=== PATIENT | male | born 1965 | race African-American/Black ===

== ENCOUNTER 2021-12-03 07:28 | Inpatient (IN) ==
[2021-12-03 07:52] LABS: Basophils % 0.3 %; Eosinophils # 0.2 K/mcL (0.0-0.6); Eosinophils % 2.6 %; Hematocrit 38.6 % (37.5-50.1); Hemoglobin 12.7 g/dL (12.9-16.9); Immature Granulocytes % 0.3 % (0-4); Lymphocytes % 11.3 %; Mean Corpuscular HGB Conc 32.9 g/dL (31.6-35.5); Mean Corpuscular Hemoglobin 28.3 pg (28.0-33.3); Mean Corpuscular Volume 86.2 fL (83.0-100.0); Mean Platelet Volume 9.3 fL (9.4-12.4); Monocytes # 0.6 K/mcL (0.0-1.3); Monocytes % 6.5 %; Neutrophils # 7.2 K/mcL (1.6-8.9); Platelet Count 166 K/mcL (140-400); Red Blood Count 4.48 M/mcL (4.19-5.50); Red Cell Distribution Width 14.6 % (11.5-14.5); White Blood Count 9.1 K/mcL (4.3-11.1)
[2021-12-03] MEDS ORDERED: Iopamidol - 370 500 ML MLS IVP ONE (08:09)
[2021-12-03 08:11] LABS: Calcium 8.4 mg/dL (8.6-10.3)
[2021-12-03 08:15] LABS: Troponin I 0.04 ng/mL (< 0.04)
[2021-12-03] MEDS ORDERED: *HR* Propofol 200 MG/20 ML VIAL IVP ONE (08:46)
[2021-12-03] MEDS ORDERED: *HR* FentaNYL (PF) 1,000 MCG/20 ML VIAL ONE (08:46)
[2021-12-03] MEDS ORDERED: *HR* Midazolam HCl 5 MG/5 ML VIAL IVP ONE ×2 (08:46)
[2021-12-03] MEDS ORDERED: Mannitol 25% vial 12.5 GM/50 ML VIAL IVPB ONE (08:48)
[2021-12-03] MEDS ORDERED: Tranexamic Acid 1,000 MG/10 ML VIAL IR ONE (08:48)
[2021-12-03] MEDS ORDERED: Albumin Human 25% 25 GM/100 ML IV.SOLN IVPB ONE (08:48)
[2021-12-03] MEDS ORDERED: *HR* Phenylephrine 10 MG/ML VIAL IVC ONE (08:48)
[2021-12-03] MEDS ORDERED: Lidocaine 2% Syringe 100 MG/5 ML IVP ONE (08:48)
[2021-12-03] MEDS ORDERED: *HR* Heparin 10,000 UNIT/10 ML VIAL IR ONE (08:48)
[2021-12-03] MEDS ORDERED: *HR* Magnesium Sulfate 2 GM/50 ML PIGGYBACK IVPB ONE (08:48)
[2021-12-03] MEDS ORDERED: niCARdipine 20 MG/200 ML MLS IVC ONE ×2 (08:54→14:09)
[2021-12-03] MEDS ORDERED: CeFAZolin Syr 2,000MG/20 ML 2,000 MG/20 ML SYRINGE IVPB ONE (09:06)
[2021-12-03 09:42] LABS: ABG Base Excess -1 mEq/L (-2 to 3); ABG Chloride 105 mEq/L (98-107); ABG Glucose 124 mg/dL (60-95); ABG HCO3 24 mEq/L (21-27); ABG Ionized Calcium 1.22 mmol/L (1.15-1.35); ABG Oxygen Saturation 89 % (95-98); ABG PCO2 40 mmHg (35-45); ABG PH 7.38 pH Units (7.32-7.45); ABG PO2 57 mmHg (85-104); ABG TCO2 25 mEq/L (20-26)
[2021-12-03] MEDS ORDERED: Tranexamic Acid 1,000 MG/10 ML VIAL ONE (09:57)
[2021-12-03] MEDS ORDERED: Vancomycin 1,750 MG/517.5 ML IV.SOLN IVPB ONE (10:00)
[2021-12-03 10:02] LABS: ABG Base Excess -2 mEq/L (-2 to 3); ABG Chloride 104 mEq/L (98-107); ABG Glucose 118 mg/dL (60-95); ABG HCO3 22 mEq/L (21-27); ABG Oxygen Saturation 100 % (95-98); ABG PCO2 34 mmHg (35-45); ABG PH 7.42 pH Units (7.32-7.45); ABG PO2 209 mmHg (85-104); ABG TCO2 23 mEq/L (20-26)
[2021-12-03] MEDS ORDERED: *HR* Rocuronium Bromide 50 MG/5 ML VIAL ONE ×2 (10:15→13:08)
[2021-12-03 10:36] LABS: ABG Base Excess -1 mEq/L (-2 to 3); ABG Chloride 107 mEq/L (98-107); ABG Glucose 111 mg/dL (60-95); ABG HCO3 23 mEq/L (21-27); ABG Ionized Calcium 1.18 mmol/L (1.15-1.35); ABG Oxygen Saturation 98 % (95-98); ABG PCO2 37 mmHg (35-45); ABG PH 7.41 pH Units (7.32-7.45); ABG PO2 105 mmHg (85-104); ABG TCO2 25 mEq/L (20-26)
[2021-12-03] MEDS ORDERED: *HR* FentaNYL (PF) 250 MCG/5 ML VIAL ONE (11:07)
[2021-12-03] MEDS ORDERED: ceFAZolin 3,000 MG in Water for inj. (sterile) 30 ML IVP ONE (11:19)
[2021-12-03 11:28] LABS: ABG Base Excess -2 mEq/L (-2 to 3); ABG Chloride 105 mEq/L (98-107); ABG Glucose 112 mg/dL (60-95); ABG HCO3 24 mEq/L (21-27); ABG Ionized Calcium 1.06 mmol/L (1.15-1.35); ABG Oxygen Saturation 100 % (95-98); ABG PCO2 41 mmHg (35-45); ABG PH 7.37 pH Units (7.32-7.45); ABG PO2 599 mmHg (85-104); ABG TCO2 25 mEq/L (20-26)
[2021-12-03] MEDS ORDERED: Dexmedetomidine HCl 400 MCG/100 ML MLS IVC ONE (11:46)
[2021-12-03 11:53] LABS: ABG Base Excess -3 mEq/L (-2 to 3); ABG Chloride 103 mEq/L (98-107); ABG Glucose 115 mg/dL (60-95); ABG HCO3 23 mEq/L (21-27); ABG Oxygen Saturation 100 % (95-98); ABG PCO2 45 mmHg (35-45); ABG PH 7.32 pH Units (7.32-7.45); ABG PO2 512 mmHg (85-104); ABG TCO2 24 mEq/L (20-26)
[2021-12-03] MEDS ORDERED: Buckersberg's Blood Cardioplegia PF ONE (12:00)
[2021-12-03] MEDS ORDERED: [UNRECOGNIZED DRUG - OTHER] IVPB ONE (12:00)
[2021-12-03] MEDS ORDERED: HUM PROTHROMBIN CPLX IVPB ONE (12:00)
[2021-12-03] MEDS ORDERED: Norepinephrine 4 MG in 0.9 % Sodium Chloride 250 ML IVC PRN (12:00)
[2021-12-03] MEDS ORDERED: Heparin 15,000 UNIT in 0.9 % Sodium Chloride 500 ML IR ONE (12:00)
[2021-12-03] MEDS ORDERED: del Nido Cardioplegia Solution PF ONE ×2 (12:00)
[2021-12-03] MEDS ORDERED: WATER FOR INJ IVPB ONE (12:00)
[2021-12-03 12:30] LABS: ABG Base Excess 0 mEq/L (-2 to 3); ABG Chloride 101 mEq/L (98-107); ABG Glucose 149 mg/dL (60-95); ABG HCO3 27 mEq/L (21-27); ABG Ionized Calcium 1.13 mmol/L (1.15-1.35); ABG Oxygen Saturation 100 % (95-98); ABG PCO2 53 mmHg (35-45); ABG PH 7.32 pH Units (7.32-7.45); ABG PO2 475 mmHg (85-104); ABG TCO2 29 mEq/L (20-26)
[2021-12-03] MEDS ORDERED: Protamine Sulfate 250 MG/25 ML VIAL IVP ONE (12:31)
[2021-12-03] MEDS ORDERED: Calcium Gluconate 1,000 MG/10 ML VIAL ONE (12:31)
[2021-12-03] MEDS ORDERED: Insulin Regular, Human 100 UNIT/ML IV PRN (13:03)
[2021-12-03] MEDS ORDERED: Ondansetron 4 MG/2 ML VIAL IVP PRN (13:03)
[2021-12-03] MEDS ORDERED: *HR* OxyCODONE/APAP 5/325 TABLET PO PRN (13:03)
[2021-12-03] MEDS ORDERED: Naloxone 0.4 MG/ML INJ IVP PRN (13:03)
[2021-12-03] MEDS ORDERED: Albuterol 2.5 MG/3 ML NEBULIZER IH PRN (13:03)
[2021-12-03] MEDS ORDERED: Acetaminophen 325 MG TABLET PO PRN (13:03)
[2021-12-03 13:19] LABS: ABG Base Excess -2 mEq/L (-2 to 3); ABG Chloride 110 mEq/L (98-107); ABG Glucose 180 mg/dL (60-95); ABG HCO3 24 mEq/L (21-27); ABG Ionized Calcium 1.03 mmol/L (1.15-1.35); ABG Oxygen Saturation 100 % (95-98); ABG PCO2 41 mmHg (35-45); ABG PH 7.37 pH Units (7.32-7.45); ABG PO2 221 mmHg (85-104); ABG TCO2 25 mEq/L (20-26)
[2021-12-03] MEDS ORDERED: Furosemide 40 MG/4 ML VIAL ONE (13:25)
[2021-12-03] MEDS ORDERED: Calcium Gluconate 1gm/50mL 1 GM/50 ML BAG IVPB PRN (13:26)
[2021-12-03] MEDS ORDERED: Amiodarone Premix 0 MG/0 ML BAG IVC ONE (13:44)
[2021-12-03] MEDS ORDERED: *HR* Amiodarone 150 MG/3 ML VIAL IVPB ONE (13:44)
[2021-12-03 13:53] LABS: ABG Base Excess -4 mEq/L (-2 to 3); ABG Chloride 106 mEq/L (98-107); ABG Glucose 190 mg/dL (60-95); ABG HCO3 21 mEq/L (21-27); ABG Ionized Calcium 1.06 mmol/L (1.15-1.35); ABG Oxygen Saturation 100 % (95-98); ABG PCO2 35 mmHg (35-45); ABG PH 7.38 pH Units (7.32-7.45); ABG PO2 570 mmHg (85-104); ABG TCO2 22 mEq/L (20-26)
[2021-12-03 14:21] LABS: ABG Base Excess -1 mEq/L (-2 to 3); ABG Chloride 103 mEq/L (98-107); ABG Glucose 210 mg/dL (60-95); ABG HCO3 25 mEq/L (21-27); ABG Ionized Calcium 1.28 mmol/L (1.15-1.35); ABG Oxygen Saturation 100 % (95-98); ABG PCO2 49 mmHg (35-45); ABG PH 7.32 pH Units (7.32-7.45); ABG PO2 500 mmHg (85-104); ABG TCO2 27 mEq/L (20-26)
[2021-12-03 14:53] LABS: ABG Base Excess -4 mEq/L (-2 to 3); ABG Chloride 103 mEq/L (98-107); ABG Glucose 187 mg/dL (60-95); ABG HCO3 21 mEq/L (21-27); ABG Ionized Calcium 1.08 mmol/L (1.15-1.35); ABG Oxygen Saturation 100 % (95-98); ABG PCO2 38 mmHg (35-45); ABG PH 7.36 pH Units (7.32-7.45); ABG PO2 336 mmHg (85-104); ABG TCO2 23 mEq/L (20-26)
[2021-12-03 15:12] LABS: ABG Base Excess -2 mEq/L (-2 to 3); ABG Chloride 105 mEq/L (98-107); ABG Glucose 182 mg/dL (60-95); ABG HCO3 23 mEq/L (21-27); ABG Ionized Calcium 0.92 mmol/L (1.15-1.35); ABG Oxygen Saturation 100 % (95-98); ABG PCO2 42 mmHg (35-45); ABG PH 7.35 pH Units (7.32-7.45); ABG PO2 438 mmHg (85-104); ABG TCO2 25 mEq/L (20-26)
[2021-12-03 16:20] LABS: ABG Base Excess -2 mEq/L (-2 to 3); ABG HCO3 24 mEq/L (21-27); ABG Oxygen Saturation 96 % (95-98); ABG PCO2 47 mmHg (35-45); ABG PH 7.33 pH Units (7.32-7.45); ABG PO2 91 mmHg (85-104); ABG TCO2 26 mEq/L (20-26); Blood Gas Modality ASSIST CONTROL; Blood Gas VT 500 cc
[2021-12-03] MEDS: niCARdipine 20 MG/200 ML MLS IVC SCH ×3 (16:47→21:28)
[2021-12-03] MEDS: Ipratropium/Albuterol Neb 3 ML IH SCH ×3 (16:48→23:57)
[2021-12-03] MEDS: *HR* FentaNYL (PF) 100 MCG/2 ML VIAL IVP PRN ×3 (16:49→23:09)
[2021-12-03 16:59] LABS: INR 1.4
[2021-12-03 17:01] LABS: Activated Partial Thrombo Time 90.2 Seconds (26.0-36.0)
[2021-12-03 17:10] LABS: Eosinophils % 0.3 %; Immature Granulocytes % 0.6 % (0-4)
[2021-12-03 17:12] LABS: Basophils % 0.1 %; Hematocrit 29.6 % (37.5-50.1); Hemoglobin 9.8 g/dL (12.9-16.9); Immature Platelets 3.2 % (1.1-6.1); Lymphocytes # 0.8 K/mcL (0.6-4.6); Lymphocytes % 7.1 %; Mean Corpuscular HGB Conc 33.1 g/dL (31.6-35.5); Mean Corpuscular Volume 87.6 fL (83.0-100.0); Mean Platelet Volume 10.2 fL (9.4-12.4); Monocytes # 0.4 K/mcL (0.0-1.3); Monocytes % 3.4 %; Neutrophils # 10.1 K/mcL (1.6-8.9); Red Blood Count 3.38 M/mcL (4.19-5.50); Red Cell Distribution Width 14.5 % (11.5-14.5); Segmented Neutrophils % 88.5 %; White Blood Count 11.4 K/mcL (4.3-11.1)
[2021-12-03 17:24] LABS: Platelet Count 95 K/mcL (140-400)
[2021-12-03] MEDS: Pantoprazole 40 MG VIAL IVP SCH (17:33)
[2021-12-03] MEDS: Dexmedetomidine HCl 400 MCG/100 ML MLS IVC SCH ×2 (17:35→22:31)
[2021-12-03 17:46] LABS: Albumin 2.3 g/dL (3.5-5.7); Albumin/Globulin Ratio 1.4 (1.1-2.2); Bilirubin,Direct 0.1 mg/dL (0.0-0.2); Bilirubin,Indirect 0.7 mg/dL (0.0-1.0); Bilirubin,Total 0.8 mg/dL (0.3-1.0); Globulin 1.6 g/dL (2.4-3.5); Magnesium 2.4 mg/dL (1.6-2.6); Potassium 3.4 mEq/L (3.5-5.1); Total Protein 3.9 g/dL (6.4-8.9)
[2021-12-03] MEDS ORDERED: Artificial Tears SOLN 15 ML BOTTLE BOTH EYES PRN (17:53)
[2021-12-03] MEDS: Albumin Human 5% 12.5 GM/250 ML IV.SOLN IVPB PRN ×2 (18:25→18:38)
[2021-12-03] MEDS: DOBUTamine 1,000 MG/250 ML BAG IVC SCH (19:53)
[2021-12-03] MEDS: EPINEPHrine 5 MG in D5% in Water 250 ML IVC SCH (19:53)
[2021-12-03] MEDS: Norepinephrine 4 MG/254 ML IV.SOLN IVC SCH ×5 (19:54→21:20)
[2021-12-03] MEDS: Chlorhexidine Rinse 15 ML MOUTHWASH MM SCH ×2 (19:58)
[2021-12-03] MEDS: CeFAZolin 2 GM/120 ML BAG IVPB SCH (20:08)
[2021-12-03 20:18] LABS: ABG Base Excess -2 mEq/L (-2 to 3); ABG HCO3 24 mEq/L (21-27); ABG Oxygen Saturation 96 % (95-98); ABG PCO2 43 mmHg (35-45); ABG PH 7.35 pH Units (7.32-7.45); ABG PO2 85 mmHg (85-104); ABG TCO2 25 mEq/L (20-26); Blood Gas VT 500 cc
[2021-12-03] MEDS: Artificial Tears SOLN 15 ML BOTTLE BOTH EYES SCH ×2 (21:28→23:50)
[2021-12-04 00:11] LABS: ABG Base Excess -2 mEq/L (-2 to 3); ABG HCO3 22 mEq/L (21-27); ABG Oxygen Saturation 97 % (95-98); ABG PCO2 34 mmHg (35-45); ABG PH 7.42 pH Units (7.32-7.45); ABG PO2 92 mmHg (85-104); ABG TCO2 23 mEq/L (20-26); Blood Gas Modality ASSIST CONTROL; Blood Gas VT 500 cc
[2021-12-04] MEDS: FentaNYL (PF) 1,000 MCG/100 ML IV.SOLN IVC SCH ×2 (00:23→13:19)
[2021-12-04] MEDS: Albumin Human 5% 12.5 GM/250 ML IV.SOLN IVPB PRN ×2 (01:21→01:43)
[2021-12-04] MEDS: niCARdipine 20 MG/200 ML MLS IVC SCH ×7 (01:24→23:40)
[2021-12-04] MEDS: Dexmedetomidine HCl 400 MCG/100 ML MLS IVC SCH ×10 (01:26→23:20)
[2021-12-04] MEDS: CeFAZolin 2 GM/120 ML BAG IVPB SCH ×3 (03:10→17:41)
[2021-12-04] MEDS: Ipratropium/Albuterol Neb 3 ML IH SCH ×6 (03:53→23:29)
[2021-12-04 04:01] LABS: ABG Base Excess -1 mEq/L (-2 to 3); ABG HCO3 24 mEq/L (21-27); ABG Oxygen Saturation 92 % (95-98); ABG PCO2 44 mmHg (35-45); ABG PH 7.35 pH Units (7.32-7.45); ABG PO2 66 mmHg (85-104); ABG TCO2 26 mEq/L (20-26); Blood Gas VT 500 cc
[2021-12-04 04:18] LABS: Red Cell Distribution Width 14.7 % (11.5-14.5)
[2021-12-04] MEDS: Artificial Tears SOLN 15 ML BOTTLE BOTH EYES SCH ×6 (04:18→23:40)
[2021-12-04 04:20] LABS: Basophils % 0.1 %; Eosinophils % 0.1 %; Hematocrit 24.9 % (37.5-50.1); Hemoglobin 8.4 g/dL (12.9-16.9); Immature Granulocytes % 0.2 % (0-4); Immature Platelets 5.6 % (1.1-6.1); Lymphocytes # 0.6 K/mcL (0.6-4.6); Lymphocytes % 5.6 %; Mean Corpuscular HGB Conc 33.7 g/dL (31.6-35.5); Mean Corpuscular Hemoglobin 29.2 pg (28.0-33.3); Mean Corpuscular Volume 86.5 fL (83.0-100.0); Mean Platelet Volume 10.7 fL (9.4-12.4); Monocytes # 0.6 K/mcL (0.0-1.3); Monocytes % 5.5 %; Neutrophils # 9.5 K/mcL (1.6-8.9); Red Blood Count 2.88 M/mcL (4.19-5.50); Segmented Neutrophils % 88.5 %; White Blood Count 10.7 K/mcL (4.3-11.1)
[2021-12-04 04:23] LABS: Platelet Count 84 K/mcL (140-400)
[2021-12-04 04:25] LABS: INR 1.3
[2021-12-04 04:34] LABS: Activated Partial Thrombo Time 30.3 Seconds (26.0-36.0)
[2021-12-04 04:39] LABS: Magnesium 2.5 mg/dL (1.6-2.6); Potassium 4.4 mEq/L (3.5-5.1)
[2021-12-04] MEDS: *HR* Enoxaparin 40 MG/0.4 ML SYRINGE SQ SCH (05:13)
[2021-12-04] MEDS: Pantoprazole 40 MG VIAL IVP SCH (08:09)
[2021-12-04] MEDS: Chlorhexidine Rinse 15 ML MOUTHWASH MM SCH ×3 (08:09→19:53)
[2021-12-04] MEDS: EPINEPHrine 5 MG in D5% in Water 250 ML IVC SCH (08:22)
[2021-12-04] MEDS: Norepinephrine 4 MG/254 ML IV.SOLN IVC SCH ×2 (08:22→14:14)
[2021-12-04] MEDS: Docusate Oral Soln 100 MG/10 ML UDC PO SCH ×2 (08:35→19:53)
[2021-12-04] MEDS: Aspirin 81 MG TAB.CHEW PO SCH (08:35)
[2021-12-04] MEDS: Furosemide 240 MG in 0.9 % Sodium Chloride 96 ML IVC SCH (08:45)
[2021-12-04 08:51] LABS: Albumin 3.5 g/dL (3.5-5.7); Albumin/Globulin Ratio 2.1 (1.1-2.2); Bilirubin,Direct 0.3 mg/dL (0.0-0.2); Bilirubin,Indirect 0.4 mg/dL (0.0-1.0); Bilirubin,Total 0.7 mg/dL (0.3-1.0); Globulin 1.7 g/dL (2.4-3.5); Total Protein 5.2 g/dL (6.4-8.9)
[2021-12-04] MEDS ORDERED: Aspirin Enteric Coated 81 MG Tablet PO SCH (09:00)
[2021-12-04 09:37] LABS: ABG Base Excess 0 mEq/L (-2 to 3); ABG HCO3 25 mEq/L (21-27); ABG Oxygen Saturation 92 % (95-98); ABG PCO2 39 mmHg (35-45); ABG PH 7.41 pH Units (7.32-7.45); ABG PO2 62 mmHg (85-104); ABG TCO2 26 mEq/L (20-26); Blood Gas Modality ASSIST CONTROL; Blood Gas VT 500 cc
[2021-12-04 10:30] LABS: Bilirubin,Urine Negative (Negative); Blood,Urine Moderate (Negative); Clarity,Urine Clear (Clear); Color,Urine Yellow (Yellow); Glucose,Urine (UA) Normal (Normal); Hyaline Casts,Urine Few per lpf (None Seen); Ketones,Urine Trace mg/dL (Negative); Leukocyte Esterase,Urine Negative (Negative); Mucus,Urine Few per lpf (None-Few); Nitrite,Urine Negative (Negative); Protein,Urine Trace mg/dL (Neg-Trace); Specific Gravity,Urine > 1.030 (1.010-1.025); Squamous Epithelial Cell,Urine Few per hpf (None-Few); Urobilinogen,Urine Normal (Normal)
[2021-12-04] MEDS: Chlorothiazide Sodium 500 MG VIAL IVP SCH ×2 (11:04→21:34)
[2021-12-04] MEDS ORDERED: Water for inj. (sterile) 20 ML ONE (11:09)
[2021-12-04] MEDS: Albumin 25% 25gram/100mL 25 GM/100 ML IV.SOLN IVPB SCH ×3 (11:54→23:41)
[2021-12-04] MEDS: DOBUTamine 1,000 MG/250 ML BAG IVC SCH (14:12)
[2021-12-04] MEDS ORDERED: 0.9 % Sodium Chloride 500 ML ONE (15:31)
[2021-12-04 15:48] LABS: ABG Base Excess 1 mEq/L (-2 to 3); ABG HCO3 26 mEq/L (21-27); ABG Oxygen Saturation 96 % (95-98); ABG PCO2 44 mmHg (35-45); ABG PH 7.38 pH Units (7.32-7.45); ABG PO2 80 mmHg (85-104); ABG TCO2 27 mEq/L (20-26); Blood Gas Modality ASSIST CONTROL; Blood Gas VT 500 cc
[2021-12-04] MEDS ORDERED: Aspirin 81 MG TAB.CHEW PO ONE (16:00)
[2021-12-04 16:39] LABS: Uric Acid 6.7 mg/dL (2.3-7.6)
[2021-12-04 18:49] LABS: Creatinine,Urine 48 mg/dL; Sodium, Urine 70.5 mEq/L
[2021-12-04 22:13] LABS: Calcium 8.7 mg/dL (8.6-10.3); Potassium 3.8 mEq/L (3.5-5.1)
[2021-12-05] MEDS: Dexmedetomidine HCl 400 MCG/100 ML MLS IVC SCH ×9 (01:36→22:05)
[2021-12-05] MEDS: FentaNYL (PF) 1,000 MCG/100 ML IV.SOLN IVC SCH ×5 (01:36→21:31)
[2021-12-05] MEDS: CeFAZolin 2 GM/120 ML BAG IVPB SCH (01:37)
[2021-12-05] MEDS ORDERED: *HR* Midazolam HCl 2 MG/2 ML VIAL IVP ONE ×2 (01:46→11:07)
[2021-12-05] MEDS: Furosemide 240 MG in 0.9 % Sodium Chloride 96 ML IVC SCH (02:45)
[2021-12-05] MEDS: Ipratropium/Albuterol Neb 3 ML IH SCH ×6 (03:54→23:07)
[2021-12-05 04:06] LABS: ABG Base Excess 0 mEq/L (-2 to 3); ABG HCO3 24 mEq/L (21-27); ABG Oxygen Saturation 94 % (95-98); ABG PCO2 34 mmHg (35-45); ABG PH 7.46 pH Units (7.32-7.45); ABG PO2 66 mmHg (85-104); ABG TCO2 25 mEq/L (20-26); Blood Gas Modality ASSIST CONTROL; Blood Gas VT 500 cc
[2021-12-05 04:10] LABS: Basophils % 0.1 %; Hematocrit 20.8 % (37.5-50.1); Hemoglobin 6.9 g/dL (12.9-16.9); Immature Granulocytes % 0.4 % (0-4); Lymphocytes # 0.9 K/mcL (0.6-4.6); Mean Corpuscular HGB Conc 33.2 g/dL (31.6-35.5); Mean Corpuscular Hemoglobin 28.8 pg (28.0-33.3); Mean Corpuscular Volume 86.7 fL (83.0-100.0); Mean Platelet Volume 9.7 fL (9.4-12.4); Monocytes # 0.7 K/mcL (0.0-1.3); Monocytes % 6.4 %; Neutrophils # 8.5 K/mcL (1.6-8.9); Red Cell Distribution Width 14.9 % (11.5-14.5); Segmented Neutrophils % 84.1 %; White Blood Count 10.1 K/mcL (4.3-11.1)
[2021-12-05] MEDS: Artificial Tears SOLN 15 ML BOTTLE BOTH EYES SCH ×6 (04:11→23:14)
[2021-12-05 04:12] LABS: Platelet Count 55 K/mcL (140-400)
[2021-12-05 04:27] LABS: Calcium 8.4 mg/dL (8.6-10.3); Magnesium 2.4 mg/dL (1.6-2.6); Potassium 3.9 mEq/L (3.5-5.1)
[2021-12-05] MEDS: Albumin 25% 25gram/100mL 25 GM/100 ML IV.SOLN IVPB SCH (05:25)
[2021-12-05] MEDS: *HR* Enoxaparin 40 MG/0.4 ML SYRINGE SQ SCH (05:25)
[2021-12-05] MEDS: niCARdipine 20 MG/200 ML MLS IVC SCH ×5 (05:28→21:40)
[2021-12-05] MEDS ORDERED: 0.9 % Sodium Chloride 250 ML ONE ×2 (05:36→11:20)
[2021-12-05] MEDS: Norepinephrine 4 MG/254 ML IV.SOLN IVC SCH (05:57)
[2021-12-05] MEDS: Chlorhexidine Rinse 15 ML MOUTHWASH MM SCH ×2 (09:06→19:48)
[2021-12-05] MEDS: Aspirin 81 MG TAB.CHEW PO SCH (09:06)
[2021-12-05] MEDS: Docusate Oral Soln 100 MG/10 ML UDC PO SCH ×2 (09:06→19:48)
[2021-12-05] MEDS: Pantoprazole 40 MG VIAL IVP SCH (09:07)
[2021-12-05] MEDS: EPINEPHrine 5 MG in D5% in Water 250 ML IVC SCH (09:07)
[2021-12-05] MEDS: Chlorothiazide Sodium 500 MG VIAL IVP SCH (09:55)
[2021-12-05 10:41] LABS: ABG Base Excess 4 mEq/L (-2 to 3); ABG HCO3 29 mEq/L (21-27); ABG Oxygen Saturation 82 % (95-98); ABG PCO2 47 mmHg (35-45); ABG PO2 47 mmHg (85-104); ABG TCO2 30 mEq/L (20-26); Blood Gas Modality CPAP/PS; Blood Gas Pressure Support 7 cm H2O
[2021-12-05] MEDS ORDERED: *HR* Midazolam HCl 5 MG/5 ML VIAL IVP ONE ×2 (11:10→23:23)
[2021-12-05 15:15] LABS: Red Cell Distribution Width 14.6 % (11.5-14.5)
[2021-12-05 15:17] LABS: Hematocrit 25.1 % (37.5-50.1); Hemoglobin 8.4 g/dL (12.9-16.9); Immature Platelets 8.9 % (1.1-6.1); Mean Corpuscular HGB Conc 33.5 g/dL (31.6-35.5); Mean Corpuscular Hemoglobin 29.1 pg (28.0-33.3); Mean Corpuscular Volume 86.9 fL (83.0-100.0); Mean Platelet Volume 10.7 fL (9.4-12.4); Red Blood Count 2.89 M/mcL (4.19-5.50); White Blood Count 11.7 K/mcL (4.3-11.1)
[2021-12-05 15:17] LABS: ABG Ionized Calcium 1.02 mmol/L (1.15-1.35)
[2021-12-05 15:22] LABS: INR 1.2; Prothrombin Time 13.5 Seconds (9.4-12.1)
[2021-12-05] MEDS: DOBUTamine 1,000 MG/250 ML BAG IVC SCH (16:02)
[2021-12-05] MEDS: Midazolam HCl 50 MG/50 ML IV.SOLN IVC SCH (16:02)
[2021-12-06] MEDS ORDERED: Water for inj. (sterile) 20 ML ONE ×2 (00:18→23:43)
[2021-12-06] MEDS: Dexmedetomidine HCl 400 MCG/100 ML MLS IVC SCH ×10 (00:21→22:34)
[2021-12-06] MEDS: Chlorothiazide Sodium 500 MG VIAL IVP SCH ×2 (00:22→13:11)
[2021-12-06] MEDS: FentaNYL (PF) 1,000 MCG/100 ML IV.SOLN IVC SCH ×5 (01:47→21:41)
[2021-12-06] MEDS: niCARdipine 20 MG/200 ML MLS IVC SCH ×6 (03:12→20:06)
[2021-12-06] MEDS: Artificial Tears SOLN 15 ML BOTTLE BOTH EYES SCH ×6 (03:37→23:58)
[2021-12-06 04:12] LABS: Basophils % 0.1 %; Hematocrit 24.1 % (37.5-50.1); Hemoglobin 8.1 g/dL (12.9-16.9); Immature Granulocytes % 0.9 % (0-4); Immature Platelets 9.1 % (1.1-6.1); Lymphocytes % 10.9 %; Mean Corpuscular HGB Conc 33.6 g/dL (31.6-35.5); Mean Corpuscular Hemoglobin 28.9 pg (28.0-33.3); Mean Corpuscular Volume 86.1 fL (83.0-100.0); Mean Platelet Volume 10.8 fL (9.4-12.4); Monocytes # 0.5 K/mcL (0.0-1.3); Monocytes % 5.5 %; Neutrophils # 7.4 K/mcL (1.6-8.9); Nucleated Red Blood Cells 0.2 /100 WBC (0); Platelet Count 76 K/mcL (140-400); Red Cell Distribution Width 14.8 % (11.5-14.5); Segmented Neutrophils % 82.6 %
[2021-12-06] MEDS: Ipratropium/Albuterol Neb 3 ML IH SCH ×2 (04:13→07:32)
[2021-12-06 04:26] LABS: Calcium 8.4 mg/dL (8.6-10.3); Magnesium 2.6 mg/dL (1.6-2.6); Potassium 3.6 mEq/L (3.5-5.1)
[2021-12-06 04:53] LABS: ABG Base Excess 5 mEq/L (-2 to 3); ABG HCO3 29 mEq/L (21-27); ABG Oxygen Saturation 94 % (95-98); ABG PCO2 39 mmHg (35-45); ABG PH 7.48 pH Units (7.32-7.45); ABG PO2 68 mmHg (85-104); ABG TCO2 30 mEq/L (20-26); Blood Gas VT 500 cc
[2021-12-06] MEDS: *HR* Enoxaparin 40 MG/0.4 ML SYRINGE SQ SCH (05:10)
[2021-12-06] MEDS ORDERED: acetaZOLAMIDE 250 MG in Water for inj. (sterile) 2.5 ML IVP ONE (07:27)
[2021-12-06] MEDS: Pantoprazole 40 MG VIAL IVP SCH (07:43)
[2021-12-06] MEDS: Norepinephrine 4 MG/254 ML IV.SOLN IVC SCH ×2 (07:43→17:42)
[2021-12-06] MEDS: Docusate Oral Soln 100 MG/10 ML UDC PO SCH ×2 (07:44→20:00)
[2021-12-06] MEDS: Chlorhexidine Rinse 15 ML MOUTHWASH MM SCH ×2 (07:44→20:00)
[2021-12-06] MEDS: Aspirin 81 MG TAB.CHEW PO SCH (07:45)
[2021-12-06] MEDS: Furosemide 240 MG in 0.9 % Sodium Chloride 96 ML IVC SCH (07:48)
[2021-12-06] MEDS: Midazolam HCl 50 MG/50 ML IV.SOLN IVC SCH (10:16)
[2021-12-06 10:49] LABS: Potassium 3.6 mEq/L (3.5-5.1)
[2021-12-06 10:51] LABS: Troponin I 48.35 ng/mL (< 0.04)
[2021-12-06] MEDS ORDERED: *HR* Midazolam HCl 5 MG/5 ML VIAL IVP ONE ×2 (12:41→12:44)
[2021-12-06] MEDS: Potassium Chloride 40 MEQ/200 ML BAG IVPB PRN ×2 (13:25→22:55)
[2021-12-06] MEDS ORDERED: Azithromycin 500 MG in 0.9 % Sodium Chloride 250 ML IVPB SCH (19:00)
[2021-12-06] MEDS ORDERED: cefTRIAXone 1,000 MG in 0.9 % Sodium Chloride 10 ML IVP SCH (19:00)
[2021-12-06] MEDS: Piperacillin/Tazobactam 3.375 GM in 0.9 % Sodium Chloride Mini Bag 100 ML IVPB SCH (19:40)
[2021-12-06] MEDS ORDERED: Piperacillin/Tazobactam 3.375 GM in 0.9 % Sodium Chloride Mini Bag 100 ML IVPB SCH (20:00)
[2021-12-06] MEDS ORDERED: 0.9 % Sodium Chloride 500 ML ONE (20:15)
[2021-12-07] MEDS ORDERED: *HR* Midazolam HCl 5 MG/5 ML VIAL IVP ONE ×4 (00:27→14:00)
[2021-12-07] MEDS: Dexmedetomidine HCl 400 MCG/100 ML MLS IVC SCH ×13 (00:49→23:57)
[2021-12-07] MEDS: Chlorothiazide Sodium 500 MG VIAL IVP SCH ×3 (00:50→15:13)
[2021-12-07] MEDS: FentaNYL (PF) 1,000 MCG/100 ML IV.SOLN IVC SCH ×5 (02:03→20:22)
[2021-12-07] MEDS: Furosemide 240 MG in 0.9 % Sodium Chloride 96 ML IVC SCH (02:31)
[2021-12-07 03:32] LABS: Basophils % 0.2 %; Eosinophils # 0.1 K/mcL (0.0-0.6); Eosinophils % 0.7 %; Hematocrit 24.5 % (37.5-50.1); Hemoglobin 8.2 g/dL (12.9-16.9); Immature Granulocytes % 0.5 % (0-4); Lymphocytes # 1.2 K/mcL (0.6-4.6); Lymphocytes % 13.7 %; Mean Corpuscular HGB Conc 33.5 g/dL (31.6-35.5); Mean Corpuscular Hemoglobin 29.2 pg (28.0-33.3); Mean Corpuscular Volume 87.2 fL (83.0-100.0); Mean Platelet Volume 11.1 fL (9.4-12.4); Monocytes # 0.5 K/mcL (0.0-1.3); Monocytes % 6.1 %; Neutrophils # 6.8 K/mcL (1.6-8.9); Nucleated Red Blood Cells 0.4 /100 WBC (0); Platelet Count 101 K/mcL (140-400); Red Blood Count 2.81 M/mcL (4.19-5.50); Segmented Neutrophils % 78.8 %; White Blood Count 8.6 K/mcL (4.3-11.1)
[2021-12-07 03:51] LABS: Calcium 8.5 mg/dL (8.6-10.3); Magnesium 2.7 mg/dL (1.6-2.6); Potassium 4.1 mEq/L (3.5-5.1)
[2021-12-07] MEDS: Piperacillin/Tazobactam 3.375 GM in 0.9 % Sodium Chloride Mini Bag 100 ML IVPB SCH ×3 (03:56→23:57)
[2021-12-07] MEDS: Artificial Tears SOLN 15 ML BOTTLE BOTH EYES SCH ×6 (03:57→23:58)
[2021-12-07 04:47] LABS: ABG Base Excess 4 mEq/L (-2 to 3); ABG HCO3 29 mEq/L (21-27); ABG Oxygen Saturation 97 % (95-98); ABG PCO2 41 mmHg (35-45); ABG PH 7.45 pH Units (7.32-7.45); ABG PO2 83 mmHg (85-104); ABG TCO2 30 mEq/L (20-26); Blood Gas Modality ASSIST CONTROL; Blood Gas VT 500 cc
[2021-12-07] MEDS: *HR* Enoxaparin 40 MG/0.4 ML SYRINGE SQ SCH (06:09)
[2021-12-07] MEDS: Norepinephrine 4 MG/254 ML IV.SOLN IVC SCH ×2 (09:51→13:20)
[2021-12-07] MEDS: niCARdipine 20 MG/200 ML MLS IVC SCH ×5 (09:51→20:23)
[2021-12-07] MEDS: Pantoprazole 40 MG VIAL IVP SCH (10:01)
[2021-12-07] MEDS: Aspirin 81 MG TAB.CHEW PO SCH (10:01)
[2021-12-07] MEDS: Docusate Oral Soln 100 MG/10 ML UDC PO SCH ×2 (10:01→19:30)
[2021-12-07] MEDS: Chlorhexidine Rinse 15 ML MOUTHWASH MM SCH ×2 (10:01→19:30)
[2021-12-07] MEDS: Midazolam HCl 50 MG/50 ML IV.SOLN IVC SCH (10:10)
[2021-12-07] MEDS ORDERED: *HR* Midazolam HCl 2 MG/2 ML VIAL IVP PRN (11:23)
[2021-12-07] MEDS: acetaZOLAMIDE 250 MG in Water for inj. (sterile) 2.5 ML IVP SCH ×2 (11:36→18:29)
[2021-12-07 11:45] LABS: INR 1.2; Prothrombin Time 13.9 Seconds (9.4-12.1)
[2021-12-07] MEDS: Albumin Human 5% 12.5 GM/250 ML IV.SOLN IVC SCH ×2 (11:48→16:34)
[2021-12-07] MEDS ORDERED: Vancomycin 1,750 MG in 0.9 % Sodium Chloride 250 ML IVPB SCH (12:00)
[2021-12-07] MEDS: Vancomycin 1,750 MG/517.5 ML IV.SOLN IVPB SCH (14:17)
[2021-12-08] MEDS: FentaNYL (PF) 1,000 MCG/100 ML IV.SOLN IVC SCH ×6 (01:16→22:48)
[2021-12-08] MEDS: Dexmedetomidine HCl 400 MCG/100 ML MLS IVC SCH ×7 (02:16→22:16)
[2021-12-08 03:26] LABS: Basophils % 0.1 %; Eosinophils # 0.2 K/mcL (0.0-0.6); Eosinophils % 2.5 %; Hemoglobin 7.5 g/dL (12.9-16.9); Immature Granulocytes % 0.5 % (0-4); Lymphocytes # 0.9 K/mcL (0.6-4.6); Lymphocytes % 12.8 %; Mean Corpuscular HGB Conc 32.6 g/dL (31.6-35.5); Mean Corpuscular Hemoglobin 28.8 pg (28.0-33.3); Mean Corpuscular Volume 88.5 fL (83.0-100.0); Mean Platelet Volume 10.5 fL (9.4-12.4); Monocytes # 0.6 K/mcL (0.0-1.3); Monocytes % 8.7 %; Neutrophils # 5.5 K/mcL (1.6-8.9); Platelet Count 115 K/mcL (140-400); Segmented Neutrophils % 75.4 %; White Blood Count 7.3 K/mcL (4.3-11.1)
[2021-12-08 03:33] LABS: INR 1.3
[2021-12-08 03:47] LABS: Calcium 8.3 mg/dL (8.6-10.3); Magnesium 2.7 mg/dL (1.6-2.6); Potassium 3.8 mEq/L (3.5-5.1)
[2021-12-08] MEDS: Artificial Tears SOLN 15 ML BOTTLE BOTH EYES SCH ×6 (04:13→23:03)
[2021-12-08 04:26] LABS: ABG Base Excess 3 mEq/L (-2 to 3); ABG HCO3 29 mEq/L (21-27); ABG Oxygen Saturation 97 % (95-98); ABG PCO2 49 mmHg (35-45); ABG PH 7.38 pH Units (7.32-7.45); ABG PO2 89 mmHg (85-104); ABG TCO2 30 mEq/L (20-26); Blood Gas Modality ASSIST CONTROL; Blood Gas VT 500 cc
[2021-12-08] MEDS: niCARdipine 20 MG/200 ML MLS IVC SCH ×8 (06:29→21:53)
[2021-12-08] MEDS: Norepinephrine 4 MG/254 ML IV.SOLN IVC SCH ×2 (07:23→13:44)
[2021-12-08] MEDS: Chlorhexidine Rinse 15 ML MOUTHWASH MM SCH ×2 (07:52→20:08)
[2021-12-08] MEDS: Aspirin 81 MG TAB.CHEW PO SCH (07:52)
[2021-12-08] MEDS: Piperacillin/Tazobactam 3.375 GM in 0.9 % Sodium Chloride Mini Bag 100 ML IVPB SCH ×3 (07:52→23:00)
[2021-12-08] MEDS: Pantoprazole 40 MG VIAL IVP SCH (07:52)
[2021-12-08] MEDS: Docusate Oral Soln 100 MG/10 ML UDC PO SCH ×2 (07:52→20:08)
[2021-12-08] MEDS: Furosemide 240 MG in 0.9 % Sodium Chloride 96 ML IVC SCH (07:53)
[2021-12-08] MEDS: Midazolam HCl 50 MG/50 ML IV.SOLN IVC SCH (10:39)
[2021-12-08] MEDS: Nitroprusside 0.9% NaCl 20 MG/100 ML VIAL IVC SCH (10:47)
[2021-12-08] MEDS: *HR* Dextrose 50 % in Water (Syg) 50 ML SYRINGE IVP PRN ×2 (12:10→16:18)
[2021-12-08] MEDS: Chlorothiazide Sodium 500 MG VIAL IVP SCH (12:21)
[2021-12-08] MEDS: Vancomycin 1,750 MG/517.5 ML IV.SOLN IVPB SCH (12:22)
[2021-12-08] MEDS ORDERED: Lidocaine -MPF 1% 5 ML AMPUL INFILT ONE (12:44)
[2021-12-08] MEDS ORDERED: 0.9 % Sodium Chloride 1,000 ML ONE ×2 (12:55→21:57)
[2021-12-08 21:39] LABS: Hemoglobin 8.1 g/dL (12.9-16.9)
[2021-12-08 21:41] LABS: VBG Ionized Calcium 1.08 mmol/L (1.15-1.35)
[2021-12-08 21:58] LABS: Calcium 8.4 mg/dL (8.6-10.3); Magnesium 2.7 mg/dL (1.6-2.6); Phosphorous 5.2 mg/dL (2.7-4.5); Potassium 3.6 mEq/L (3.5-5.1)
[2021-12-08] MEDS: Potassium Chloride 40 MEQ/200 ML BAG IVPB PRN (22:22)
[2021-12-09] MEDS: Chlorothiazide Sodium 500 MG VIAL IVP SCH ×2 (00:26→12:23)
[2021-12-09] MEDS ORDERED: Water for inj. (sterile) 20 ML ONE (00:31)
[2021-12-09] MEDS: Dexmedetomidine HCl 400 MCG/100 ML MLS IVC SCH ×5 (02:57→20:11)
[2021-12-09] MEDS: niCARdipine 20 MG/200 ML MLS IVC SCH ×13 (03:28→22:47)
[2021-12-09] MEDS: Artificial Tears SOLN 15 ML BOTTLE BOTH EYES SCH ×5 (03:29→19:26)
[2021-12-09 04:01] LABS: Basophils % 0.1 %; Eosinophils # 0.5 K/mcL (0.0-0.6); Eosinophils % 6.1 %; Hematocrit 24.2 % (37.5-50.1); Hemoglobin 7.7 g/dL (12.9-16.9); Immature Granulocytes % 0.9 % (0-4); Lymphocytes # 0.9 K/mcL (0.6-4.6); Mean Corpuscular HGB Conc 31.8 g/dL (31.6-35.5); Mean Corpuscular Hemoglobin 28.4 pg (28.0-33.3); Mean Corpuscular Volume 89.3 fL (83.0-100.0); Mean Platelet Volume 10.7 fL (9.4-12.4); Monocytes # 0.7 K/mcL (0.0-1.3); Monocytes % 8.3 %; Neutrophils # 6.4 K/mcL (1.6-8.9); Platelet Count 134 K/mcL (140-400); Red Blood Count 2.71 M/mcL (4.19-5.50); Red Cell Distribution Width 14.6 % (11.5-14.5); Segmented Neutrophils % 74.6 %; White Blood Count 8.6 K/mcL (4.3-11.1)
[2021-12-09 04:20] LABS: Calcium 8.4 mg/dL (8.6-10.3); Magnesium 2.8 mg/dL (1.6-2.6); Potassium 3.8 mEq/L (3.5-5.1)
[2021-12-09 04:24] LABS: ABG Base Excess 0 mEq/L (-2 to 3); ABG HCO3 25 mEq/L (21-27); ABG Oxygen Saturation 91 % (95-98); ABG PCO2 41 mmHg (35-45); ABG PH 7.39 pH Units (7.32-7.45); ABG PO2 61 mmHg (85-104); ABG TCO2 26 mEq/L (20-26); Blood Gas VT 500 cc
[2021-12-09] MEDS: FentaNYL (PF) 1,000 MCG/100 ML IV.SOLN IVC SCH ×4 (04:38→21:42)
[2021-12-09] MEDS: *HR* Enoxaparin 40 MG/0.4 ML SYRINGE SQ SCH (06:22)
[2021-12-09] MEDS: Norepinephrine 4 MG/254 ML IV.SOLN IVC SCH (06:23)
[2021-12-09] MEDS: acetaZOLAMIDE 250 MG in Water for inj. (sterile) 2.5 ML IVP SCH (06:39)
[2021-12-09] MEDS: Nitroprusside 0.9% NaCl 20 MG/100 ML VIAL IVC SCH (08:39)
[2021-12-09] MEDS: Pantoprazole 40 MG VIAL IVP SCH (08:55)
[2021-12-09] MEDS: Chlorhexidine Rinse 15 ML MOUTHWASH MM SCH ×2 (08:57→19:21)
[2021-12-09] MEDS: Docusate Oral Soln 100 MG/10 ML UDC PO SCH ×2 (08:57→19:22)
[2021-12-09] MEDS: Aspirin 81 MG TAB.CHEW PO SCH (08:58)
[2021-12-09] MEDS: amLODIPine 5 MG TABLET PO SCH (08:58)
[2021-12-09] MEDS: Cefepime HCl 2,000 MG in 0.9 % Sodium Chloride 20 ML IVP SCH ×2 (10:11→20:42)
[2021-12-09] MEDS: Midazolam HCl 50 MG/50 ML IV.SOLN IVC SCH (12:28)
[2021-12-09] MEDS: Furosemide 240 MG in 0.9 % Sodium Chloride 96 ML IVC SCH (12:29)
[2021-12-10] MEDS: niCARdipine 20 MG/200 ML MLS IVC SCH ×8 (00:10→17:18)
[2021-12-10] MEDS: Artificial Tears SOLN 15 ML BOTTLE BOTH EYES SCH ×6 (00:16→20:40)
[2021-12-10] MEDS: Dexmedetomidine HCl 400 MCG/100 ML MLS IVC SCH ×5 (00:51→20:38)
[2021-12-10] MEDS ORDERED: Water for inj. (sterile) 20 ML ONE (01:23)
[2021-12-10] MEDS: Chlorothiazide Sodium 500 MG VIAL IVP SCH (01:29)
[2021-12-10] MEDS: FentaNYL (PF) 1,000 MCG/100 ML IV.SOLN IVC SCH ×6 (01:39→22:38)
[2021-12-10 04:06] LABS: Basophils % 0.3 %; Eosinophils # 0.5 K/mcL (0.0-0.6); Eosinophils % 6.7 %; Hematocrit 22.3 % (37.5-50.1); Hemoglobin 7.1 g/dL (12.9-16.9); Immature Granulocytes % 1.4 % (0-4); Lymphocytes # 0.7 K/mcL (0.6-4.6); Lymphocytes % 9.3 %; Mean Corpuscular HGB Conc 31.8 g/dL (31.6-35.5); Mean Corpuscular Hemoglobin 28.2 pg (28.0-33.3); Mean Corpuscular Volume 88.5 fL (83.0-100.0); Mean Platelet Volume 10.8 fL (9.4-12.4); Monocytes # 0.6 K/mcL (0.0-1.3); Monocytes % 7.5 %; Neutrophils # 5.7 K/mcL (1.6-8.9); Platelet Count 137 K/mcL (140-400); Red Blood Count 2.52 M/mcL (4.19-5.50); Red Cell Distribution Width 14.5 % (11.5-14.5); Segmented Neutrophils % 74.8 %; White Blood Count 7.6 K/mcL (4.3-11.1)
[2021-12-10 04:25] LABS: Calcium 7.7 mg/dL (8.6-10.3); Magnesium 2.8 mg/dL (1.6-2.6)
[2021-12-10] MEDS: Furosemide 240 MG in 0.9 % Sodium Chloride 96 ML IVC SCH (04:46)
[2021-12-10 04:53] LABS: ABG Base Excess -4 mEq/L (-2 to 3); ABG HCO3 21 mEq/L (21-27); ABG Oxygen Saturation 89 % (95-98); ABG PCO2 37 mmHg (35-45); ABG PH 7.36 pH Units (7.32-7.45); ABG PO2 57 mmHg (85-104); ABG TCO2 22 mEq/L (20-26); Blood Gas Modality AF; Blood Gas VT 500 cc
[2021-12-10] MEDS: Docusate Oral Soln 100 MG/10 ML UDC PO SCH ×2 (07:37→20:55)
[2021-12-10] MEDS: Aspirin 81 MG TAB.CHEW PO SCH (07:37)
[2021-12-10] MEDS: amLODIPine 5 MG TABLET PO SCH (07:37)
[2021-12-10] MEDS: Chlorhexidine Rinse 15 ML MOUTHWASH MM SCH ×2 (07:37→20:39)
[2021-12-10] MEDS: Cefepime HCl 2,000 MG in 0.9 % Sodium Chloride 20 ML IVP SCH ×2 (07:38→20:38)
[2021-12-10] MEDS: Pantoprazole 40 MG VIAL IVP SCH (07:39)
[2021-12-10] MEDS ORDERED: *HR* Rocuronium Bromide 50 MG/5 ML VIAL ONE (08:31)
[2021-12-10] MEDS ORDERED: *HR* Propofol 200 MG/20 ML VIAL IVP ONE (08:32)
[2021-12-10] MEDS: Iron Sucrose Complex 200 MG in 0.9 % Sodium Chloride 100 ML IVPB SCH (10:25)
[2021-12-10] MEDS: Nitroprusside 0.9% NaCl 20 MG/100 ML VIAL IVC SCH (12:23)
[2021-12-10] MEDS: Midazolam HCl 50 MG/50 ML IV.SOLN IVC SCH (12:24)
[2021-12-10] MEDS ORDERED: *HR* Alteplase (Cathflo) 2 MG VIAL IVP PRN (13:28)
[2021-12-10] MEDS ORDERED: 0.9 % Sodium Chloride 1,000 ML PRIME SCH (13:30)
[2021-12-10] MEDS: PrismaSATE BGK 4/2.5 5,000 ML CRRT SCH ×6 (15:08→21:57)
[2021-12-10] MEDS: Norepinephrine 4 MG/254 ML IV.SOLN IVC SCH (21:59)
[2021-12-11] MEDS: Artificial Tears SOLN 15 ML BOTTLE BOTH EYES SCH ×7 (00:22→23:37)
[2021-12-11] MEDS: PrismaSATE BGK 4/2.5 5,000 ML CRRT SCH ×14 (00:23→21:09)
[2021-12-11] MEDS: Dexmedetomidine HCl 400 MCG/100 ML MLS IVC SCH ×6 (02:01→21:07)
[2021-12-11] MEDS: FentaNYL (PF) 1,000 MCG/100 ML IV.SOLN IVC SCH ×4 (03:29→19:00)
[2021-12-11 04:04] LABS: Hematocrit 21.9 % (37.5-50.1); Hemoglobin 7.1 g/dL (12.9-16.9); Mean Corpuscular HGB Conc 32.4 g/dL (31.6-35.5); Mean Corpuscular Hemoglobin 28.6 pg (28.0-33.3); Mean Corpuscular Volume 88.3 fL (83.0-100.0); Mean Platelet Volume 10.8 fL (9.4-12.4); Platelet Count 129 K/mcL (140-400); Red Blood Count 2.48 M/mcL (4.19-5.50); Red Cell Distribution Width 14.3 % (11.5-14.5); White Blood Count 10.1 K/mcL (4.3-11.1)
[2021-12-11 04:19] LABS: ABG Base Excess 0 mEq/L (-2 to 3); ABG HCO3 25 mEq/L (21-27); ABG Oxygen Saturation 90 % (95-98); ABG PCO2 43 mmHg (35-45); ABG PH 7.38 pH Units (7.32-7.45); ABG PO2 59 mmHg (85-104); ABG TCO2 26 mEq/L (20-26); Blood Gas Modality AF; Blood Gas VT 500 cc
[2021-12-11 04:27] LABS: Calcium 7.5 mg/dL (8.6-10.3); Magnesium 2.5 mg/dL (1.6-2.6); Phosphorous 4.6 mg/dL (2.7-4.5); Potassium 4.1 mEq/L (3.5-5.1)
[2021-12-11] MEDS: Chlorothiazide Sodium 500 MG VIAL IVP SCH (07:17)
[2021-12-11] MEDS: Piperacillin/Tazobactam 3.375 GM in 0.9 % Sodium Chloride Mini Bag 100 ML IVPB SCH (07:18)
[2021-12-11] MEDS: Cefepime HCl 2,000 MG in 0.9 % Sodium Chloride 20 ML IVP SCH ×2 (07:45→16:10)
[2021-12-11] MEDS: Pantoprazole 40 MG VIAL IVP SCH (07:45)
[2021-12-11] MEDS: Nitroprusside 0.9% NaCl 20 MG/100 ML VIAL IVC SCH ×3 (08:31→20:02)
[2021-12-11] MEDS: Norepinephrine 4 MG/254 ML IV.SOLN IVC SCH ×2 (08:31→19:49)
[2021-12-11] MEDS: Chlorhexidine Rinse 15 ML MOUTHWASH MM SCH ×2 (09:23→20:00)
[2021-12-11] MEDS: amLODIPine 5 MG TABLET PO SCH (09:23)
[2021-12-11] MEDS: Aspirin 81 MG TAB.CHEW PO SCH (09:23)
[2021-12-11] MEDS: Docusate Oral Soln 100 MG/10 ML UDC PO SCH ×2 (09:23→20:00)
[2021-12-11] MEDS: Iron Sucrose Complex 200 MG in 0.9 % Sodium Chloride 100 ML IVPB SCH (09:24)
[2021-12-11] MEDS ORDERED: Dextrose Gel 15 GM/37.5 ML TUBE PO PRN ×2 (09:41)
[2021-12-11] MEDS ORDERED: *HR* Dextrose 50 % in Water (Syg) 50 ML SYRINGE IVP PRN (09:41)
[2021-12-11] MEDS ORDERED: D5% in Water 1,000 ML IVC PRN (09:41)
[2021-12-11] MEDS: niCARdipine 20 MG/200 ML MLS IVC SCH ×10 (10:02→23:30)
[2021-12-11] MEDS: Insulin LISPRO 300 UNITS/3 ML VIAL SUBQ SCH ×3 (13:00→23:36)
[2021-12-11] MEDS: Ipratropium/Albuterol Neb 3 ML IH SCH ×2 (16:53→21:25)
[2021-12-11] MEDS: *HR* Heparin 5,000 UNIT/ML VIAL SQ SCH ×2 (17:01→21:19)
[2021-12-11] MEDS: *HR* Heparin 5,000 UNIT/ML VIAL IVP PRN (21:07)
[2021-12-12 00:15] LABS: Hematocrit 21.7 % (37.5-50.1); Hemoglobin 7.4 g/dL (12.9-16.9)
[2021-12-12] MEDS: Cefepime HCl 2,000 MG in 0.9 % Sodium Chloride 20 ML IVP SCH ×4 (00:16→22:40)
[2021-12-12] MEDS: Norepinephrine 4 MG/254 ML IV.SOLN IVC SCH ×2 (00:16→17:46)
[2021-12-12] MEDS: Dexmedetomidine HCl 400 MCG/100 ML MLS IVC SCH ×7 (00:53→21:53)
[2021-12-12] MEDS: niCARdipine 20 MG/200 ML MLS IVC SCH ×15 (00:54→23:40)
[2021-12-12] MEDS: PrismaSATE BGK 4/2.5 5,000 ML CRRT SCH ×14 (00:55→23:09)
[2021-12-12] MEDS: FentaNYL (PF) 1,000 MCG/100 ML IV.SOLN IVC SCH ×3 (00:56→20:17)
[2021-12-12] MEDS: Ipratropium/Albuterol Neb 3 ML IH SCH ×4 (03:23→22:00)
[2021-12-12 03:40] LABS: ABG Base Excess -1 mEq/L (-2 to 3); ABG HCO3 23 mEq/L (21-27); ABG Oxygen Saturation 93 % (95-98); ABG PCO2 35 mmHg (35-45); ABG PH 7.43 pH Units (7.32-7.45); ABG PO2 64 mmHg (85-104); ABG TCO2 24 mEq/L (20-26); Blood Gas Modality AF; Blood Gas VT 500 cc
[2021-12-12 04:00] LABS: Hematocrit 21.7 % (37.5-50.1); Hemoglobin 7.2 g/dL (12.9-16.9); Mean Corpuscular HGB Conc 33.2 g/dL (31.6-35.5); Mean Corpuscular Hemoglobin 28.2 pg (28.0-33.3); Mean Corpuscular Volume 85.1 fL (83.0-100.0); Mean Platelet Volume 10.8 fL (9.4-12.4); Platelet Count 186 K/mcL (140-400); Red Blood Count 2.55 M/mcL (4.19-5.50); Red Cell Distribution Width 14.4 % (11.5-14.5)
[2021-12-12 04:03] LABS: White Blood Count 16.9 K/mcL (4.3-11.1)
[2021-12-12 04:21] LABS: Calcium 7.7 mg/dL (8.6-10.3); Magnesium 2.7 mg/dL (1.6-2.6); Potassium 4.4 mEq/L (3.5-5.1)
[2021-12-12] MEDS: Artificial Tears SOLN 15 ML BOTTLE BOTH EYES SCH ×6 (04:36→23:10)
[2021-12-12] MEDS: Insulin LISPRO 300 UNITS/3 ML VIAL SUBQ SCH ×4 (05:10→23:11)
[2021-12-12] MEDS: *HR* Heparin 5,000 UNIT/ML VIAL SQ SCH ×3 (05:10→22:39)
[2021-12-12] MEDS: Pantoprazole 40 MG VIAL IVP SCH (07:55)
[2021-12-12] MEDS: Docusate Oral Soln 100 MG/10 ML UDC PO SCH ×2 (07:55→20:18)
[2021-12-12] MEDS: Aspirin 81 MG TAB.CHEW PO SCH (07:55)
[2021-12-12] MEDS: Chlorhexidine Rinse 15 ML MOUTHWASH MM SCH ×2 (07:55→20:18)
[2021-12-12] MEDS: amLODIPine 5 MG TABLET PO SCH (07:55)
[2021-12-12] MEDS: Iron Sucrose Complex 200 MG in 0.9 % Sodium Chloride 100 ML IVPB SCH (07:56)
[2021-12-12 12:35] LABS: Bacteria,Urine Few per hpf (None-Few); Bilirubin,Urine Negative (Negative); Blood,Urine Large (Negative); Clarity,Urine Ex.Turbid (Clear); Color,Urine Light-Orange (Yellow); Glucose,Urine (UA) 30 mg/dL (Normal); Ketones,Urine Negative (Negative); Leukocyte Esterase,Urine Small (Negative); Nitrite,Urine Negative (Negative); Protein,Urine 100 mg/dL (Neg-Trace); RBC,Urine TNTC per hpf (0-3); Specific Gravity,Urine 1.027 (1.010-1.025); Urobilinogen,Urine Normal (Normal); WBC,Urine 15-30 per hpf (0-3)
[2021-12-12 15:46] LABS: Appearance of Body Fluid Cloudy (Clear); Volume of Body Fluid 30 mL
[2021-12-12] MEDS ORDERED: *HR* Heparin 5,000 UNIT/ML VIAL ONE (20:27)
[2021-12-12] MEDS: *HR* Heparin 5,000 UNIT/ML VIAL IVP PRN (22:40)
[2021-12-13] MEDS: Dexmedetomidine HCl 400 MCG/100 ML MLS IVC SCH ×8 (00:04→21:10)
[2021-12-13] MEDS: niCARdipine 20 MG/200 ML MLS IVC SCH ×6 (00:12→08:00)
[2021-12-13] MEDS: PrismaSATE BGK 4/2.5 5,000 ML CRRT SCH ×13 (02:07→22:35)
[2021-12-13] MEDS: Artificial Tears SOLN 15 ML BOTTLE BOTH EYES SCH ×6 (03:16→23:29)
[2021-12-13] MEDS: Norepinephrine 4 MG/254 ML IV.SOLN IVC SCH ×2 (03:17→15:13)
[2021-12-13 03:25] LABS: Hematocrit 21.4 % (37.5-50.1); Hemoglobin 7.3 g/dL (12.9-16.9); Mean Corpuscular HGB Conc 34.1 g/dL (31.6-35.5); Mean Corpuscular Hemoglobin 28.5 pg (28.0-33.3); Mean Corpuscular Volume 83.6 fL (83.0-100.0); Mean Platelet Volume 10.8 fL (9.4-12.4); Platelet Count 191 K/mcL (140-400); Red Blood Count 2.56 M/mcL (4.19-5.50); Red Cell Distribution Width 14.3 % (11.5-14.5); White Blood Count 23.4 K/mcL (4.3-11.1)
[2021-12-13] MEDS: Ipratropium/Albuterol Neb 3 ML IH SCH ×4 (03:25→20:05)
[2021-12-13 03:44] LABS: Calcium 7.9 mg/dL (8.6-10.3); Magnesium 2.7 mg/dL (1.6-2.6); Potassium 4.3 mEq/L (3.5-5.1)
[2021-12-13] MEDS: FentaNYL (PF) 1,000 MCG/100 ML IV.SOLN IVC SCH ×2 (04:24→19:12)
[2021-12-13 04:28] LABS: ABG Base Excess 0 mEq/L (-2 to 3); ABG HCO3 24 mEq/L (21-27); ABG Oxygen Saturation 95 % (95-98); ABG PCO2 37 mmHg (35-45); ABG PH 7.43 pH Units (7.32-7.45); ABG PO2 73 mmHg (85-104); ABG TCO2 25 mEq/L (20-26); Blood Gas VT 500 cc
[2021-12-13] MEDS: Insulin LISPRO 300 UNITS/3 ML VIAL SUBQ SCH ×3 (05:23→17:54)
[2021-12-13] MEDS: *HR* Heparin 5,000 UNIT/ML VIAL SQ SCH ×3 (05:23→23:11)
[2021-12-13] MEDS: amLODIPine 5 MG TABLET PO SCH (07:52)
[2021-12-13] MEDS: Docusate Oral Soln 100 MG/10 ML UDC PO SCH ×2 (07:52→19:47)
[2021-12-13] MEDS: Aspirin 81 MG TAB.CHEW PO SCH (07:52)
[2021-12-13] MEDS: Chlorhexidine Rinse 15 ML MOUTHWASH MM SCH ×2 (07:52→19:47)
[2021-12-13] MEDS: Pantoprazole 40 MG VIAL IVP SCH (07:53)
[2021-12-13] MEDS: Cefepime HCl 2,000 MG in 0.9 % Sodium Chloride 20 ML IVP SCH ×3 (07:53→23:11)
[2021-12-13] MEDS: NICARDIPINE IVC SCH ×7 (08:19→21:06)
[2021-12-13] MEDS: SODIUM CHLORIDE IVC SCH ×7 (08:19→21:06)
[2021-12-14] MEDS: Dexmedetomidine HCl 400 MCG/100 ML MLS IVC SCH ×9 (00:13→23:55)
[2021-12-14] MEDS: NICARDIPINE IVC SCH ×2 (00:13→05:21)
[2021-12-14] MEDS: SODIUM CHLORIDE 0.9% IVC SCH ×2 (00:13→05:21)
[2021-12-14] MEDS: Insulin LISPRO 300 UNITS/3 ML VIAL SUBQ SCH ×4 (00:14→17:55)
[2021-12-14] MEDS: PrismaSATE BGK 4/2.5 5,000 ML CRRT SCH ×14 (00:56→22:55)
[2021-12-14] MEDS: Norepinephrine 4 MG/254 ML IV.SOLN IVC SCH ×2 (01:06→14:14)
[2021-12-14] MEDS: Artificial Tears SOLN 15 ML BOTTLE BOTH EYES SCH ×5 (03:05→19:50)
[2021-12-14 03:31] LABS: Hematocrit 22.9 % (37.5-50.1); Hemoglobin 7.6 g/dL (12.9-16.9); Mean Corpuscular HGB Conc 33.2 g/dL (31.6-35.5); Mean Corpuscular Hemoglobin 28.6 pg (28.0-33.3); Mean Corpuscular Volume 86.1 fL (83.0-100.0); Mean Platelet Volume 10.9 fL (9.4-12.4); Platelet Count 269 K/mcL (140-400); Red Blood Count 2.66 M/mcL (4.19-5.50); Red Cell Distribution Width 15.1 % (11.5-14.5); White Blood Count 23.1 K/mcL (4.3-11.1)
[2021-12-14 03:52] LABS: Calcium 8.3 mg/dL (8.6-10.3); Magnesium 2.8 mg/dL (1.6-2.6); Potassium 4.4 mEq/L (3.5-5.1)
[2021-12-14] MEDS: Ipratropium/Albuterol Neb 3 ML IH SCH ×4 (03:54→22:51)
[2021-12-14 04:27] LABS: ABG Base Excess 1 mEq/L (-2 to 3); ABG HCO3 24 mEq/L (21-27); ABG Oxygen Saturation 89 % (95-98); ABG PCO2 33 mmHg (35-45); ABG PH 7.47 pH Units (7.32-7.45); ABG PO2 52 mmHg (85-104); ABG TCO2 25 mEq/L (20-26); Blood Gas VT 500 cc
[2021-12-14] MEDS: *HR* Heparin 5,000 UNIT/ML VIAL SQ SCH ×3 (05:18→21:13)
[2021-12-14] MEDS: Pantoprazole 40 MG VIAL IVP SCH (07:41)
[2021-12-14] MEDS: Cefepime HCl 2,000 MG in 0.9 % Sodium Chloride 20 ML IVP SCH ×2 (07:42→16:26)
[2021-12-14] MEDS: amLODIPine 5 MG TABLET PO SCH (07:42)
[2021-12-14] MEDS: Docusate Oral Soln 100 MG/10 ML UDC PO SCH ×2 (07:42→19:49)
[2021-12-14] MEDS: Aspirin 81 MG TAB.CHEW PO SCH (07:42)
[2021-12-14] MEDS: Chlorhexidine Rinse 15 ML MOUTHWASH MM SCH ×2 (07:42→19:50)
[2021-12-14] MEDS: *HR* OxyCODONE Oral Soln 5 MG/5 ML UD.LIQ GTUBE PRN (17:25)
[2021-12-14] MEDS: Metoclopramide 10 MG/2 ML VIAL IVP SCH (17:25)
[2021-12-15] MEDS: Artificial Tears SOLN 15 ML BOTTLE BOTH EYES SCH ×7 (00:09→23:20)
[2021-12-15] MEDS: Cefepime HCl 2,000 MG in 0.9 % Sodium Chloride 20 ML IVP SCH ×2 (00:09→08:11)
[2021-12-15] MEDS: Insulin LISPRO 300 UNITS/3 ML VIAL SUBQ SCH ×4 (00:09→18:46)
[2021-12-15] MEDS: Metoclopramide 10 MG/2 ML VIAL IVP SCH ×5 (00:10→23:19)
[2021-12-15] MEDS: *HR* OxyCODONE Oral Soln 5 MG/5 ML UD.LIQ GTUBE PRN ×3 (00:11→16:08)
[2021-12-15] MEDS: PrismaSATE BGK 4/2.5 5,000 ML CRRT SCH ×7 (00:51→10:30)
[2021-12-15] MEDS: Dexmedetomidine HCl 400 MCG/100 ML MLS IVC SCH ×9 (02:05→21:53)
[2021-12-15] MEDS: Ipratropium/Albuterol Neb 3 ML IH SCH ×4 (03:57→20:08)
[2021-12-15 04:04] LABS: ABG Base Excess 1 mEq/L (-2 to 3); ABG HCO3 23 mEq/L (21-27); ABG Oxygen Saturation 93 % (95-98); ABG PCO2 29 mmHg (35-45); ABG PH 7.51 pH Units (7.32-7.45); ABG PO2 59 mmHg (85-104); ABG TCO2 24 mEq/L (20-26); Blood Gas Modality CPAP/PS; Blood Gas Pressure Support 5 cm H2O
[2021-12-15 04:23] LABS: Hematocrit 24.5 % (37.5-50.1); Hemoglobin 8.2 g/dL (12.9-16.9); Mean Corpuscular HGB Conc 33.5 g/dL (31.6-35.5); Mean Corpuscular Hemoglobin 28.7 pg (28.0-33.3); Mean Corpuscular Volume 85.7 fL (83.0-100.0); Mean Platelet Volume 11.2 fL (9.4-12.4); Platelet Count 293 K/mcL (140-400); Red Blood Count 2.86 M/mcL (4.19-5.50); Red Cell Distribution Width 15.6 % (11.5-14.5)
[2021-12-15 04:26] LABS: White Blood Count 32.9 K/mcL (4.3-11.1)
[2021-12-15 04:41] LABS: Calcium 8.7 mg/dL (8.6-10.3); Magnesium 2.8 mg/dL (1.6-2.6); Potassium 4.4 mEq/L (3.5-5.1)
[2021-12-15] MEDS: *HR* Heparin 5,000 UNIT/ML VIAL SQ SCH ×3 (05:49→23:17)
[2021-12-15] MEDS: Norepinephrine 4 MG/254 ML IV.SOLN IVC SCH ×3 (06:57→21:55)
[2021-12-15] MEDS ORDERED: Iopamidol - 370 500 ML MLS IVP ONE (08:05)
[2021-12-15] MEDS: Aspirin 81 MG TAB.CHEW PO SCH (08:10)
[2021-12-15] MEDS: amLODIPine 5 MG TABLET PO SCH (08:10)
[2021-12-15] MEDS: Docusate Oral Soln 100 MG/10 ML UDC PO SCH ×2 (08:11→19:34)
[2021-12-15] MEDS: Chlorhexidine Rinse 15 ML MOUTHWASH MM SCH ×2 (08:12→19:34)
[2021-12-15] MEDS: Pantoprazole 40 MG VIAL IVP SCH (08:12)
[2021-12-15] MEDS: NICARDIPINE IVC SCH (08:13)
[2021-12-15] MEDS: SODIUM CHLORIDE 0.9% IVC SCH (08:13)
[2021-12-15 11:08] LABS: Adenovirus Not Detected (Not Detect); Bordetella Pertussis Not Detected (Not Detect); Chlamydophila pneumoniae Not Detected (Not Detect); Coronavirus 229E Not Detected (Not Detect); Coronavirus HKU1 Not Detected (Not Detect); Coronavirus NL63 Not Detected (Not Detect); Coronavirus OC43 Not Detected (Not Detect); Human Metapneumovirus Not Detected (Not Detect); Human Rhinovirus/Enterovirus Not Detected (Not Detect); Influenza A Subtype 2009 H1 Not Detected (Not Detect); Influenza B Not Detected (Not Detect); Mycoplasma pneumoniae Not Detected (Not Detect); Parainfluenza Virus 1 Not Detected (Not Detect); Parainfluenza Virus 2 Not Detected (Not Detect); Parainfluenza Virus 3 Not Detected (Not Detect); Parainfluenza Virus 4 Not Detected (Not Detect); Respiratory Syncytial Virus Not Detected (Not Detect); SARS-CoV-2 Not Detected (Not Detect)
[2021-12-15] MEDS: Bisacodyl 10 MG RECTAL SUPPOSITORY RC SCH (16:09)
[2021-12-15] MEDS: Meropenem 1,000 MG in 0.9 % Sodium Chloride Mini Bag 100 ML IVPB SCH ×2 (16:10→23:17)
[2021-12-15] MEDS ORDERED: Fluconazole 200 MG/100 ML 200 MG/100 ML BAG IVPB SCH (18:15)
[2021-12-15] MEDS: Fluconazole 400 MG/200 ML 400 MG/200 ML BAG IVPB SCH (18:48)
[2021-12-16] MEDS: Insulin LISPRO 300 UNITS/3 ML VIAL SUBQ SCH ×4 (00:03→18:34)
[2021-12-16] MEDS: Dexmedetomidine HCl 400 MCG/100 ML MLS IVC SCH ×10 (00:23→23:47)
[2021-12-16] MEDS: NICARDIPINE IVC SCH ×2 (00:25→16:17)
[2021-12-16] MEDS: SODIUM CHLORIDE 0.9% IVC SCH ×2 (00:25→16:17)
[2021-12-16] MEDS: Ipratropium/Albuterol Neb 3 ML IH SCH ×4 (03:23→20:10)
[2021-12-16 03:41] LABS: Hematocrit 26.2 % (37.5-50.1); Hemoglobin 8.7 g/dL (12.9-16.9); Mean Corpuscular HGB Conc 33.2 g/dL (31.6-35.5); Mean Corpuscular Hemoglobin 29.2 pg (28.0-33.3); Mean Corpuscular Volume 87.9 fL (83.0-100.0); Platelet Count 255 K/mcL (140-400); Red Blood Count 2.98 M/mcL (4.19-5.50); Red Cell Distribution Width 15.9 % (11.5-14.5)
[2021-12-16] MEDS: Artificial Tears SOLN 15 ML BOTTLE BOTH EYES SCH ×6 (03:49→23:48)
[2021-12-16 03:51] LABS: VBG Ionized Calcium 0.99 mmol/L (1.15-1.35)
[2021-12-16 04:18] LABS: ABG Base Excess -3 mEq/L (-2 to 3); ABG HCO3 22 mEq/L (21-27); ABG Oxygen Saturation 97 % (95-98); ABG PCO2 33 mmHg (35-45); ABG PH 7.42 pH Units (7.32-7.45); ABG PO2 86 mmHg (85-104); ABG TCO2 23 mEq/L (20-26); Blood Gas Modality SIMV; Blood Gas Pressure Support 7 cm H2O; Blood Gas VT 500 cc
[2021-12-16] MEDS: *HR* Heparin 5,000 UNIT/ML VIAL SQ SCH ×3 (05:12→22:21)
[2021-12-16] MEDS: Metoclopramide 10 MG/2 ML VIAL IVP SCH ×3 (05:12→22:21)
[2021-12-16 05:24] LABS: Calcium 8.3 mg/dL (8.6-10.3); Magnesium 2.9 mg/dL (1.6-2.6); Potassium 4.3 mEq/L (3.5-5.1)
[2021-12-16] MEDS: Docusate Oral Soln 100 MG/10 ML UDC PO SCH ×2 (08:19→19:48)
[2021-12-16] MEDS: Aspirin 81 MG TAB.CHEW PO SCH (08:19)
[2021-12-16] MEDS: Bisacodyl 10 MG RECTAL SUPPOSITORY RC SCH (08:20)
[2021-12-16] MEDS: Chlorhexidine Rinse 15 ML MOUTHWASH MM SCH ×2 (08:20→19:48)
[2021-12-16] MEDS: Pantoprazole 40 MG VIAL IVP SCH (08:21)
[2021-12-16] MEDS: Fluconazole 400 MG/200 ML 400 MG/200 ML BAG IVPB SCH (08:21)
[2021-12-16] MEDS: *HR* OxyCODONE Oral Soln 5 MG/5 ML UD.LIQ GTUBE PRN (08:46)
[2021-12-16] MEDS: FentaNYL (PF) 1,000 MCG/100 ML IV.SOLN IVC SCH ×2 (09:15→18:33)
[2021-12-16] MEDS ORDERED: 0.9 % Sodium Chloride 250 ML IVC PRN (11:17)
[2021-12-16] MEDS ORDERED: *HR* Heparin 10,000 UNIT/10 ML VIAL IV PRN (11:17)
[2021-12-16] MEDS ORDERED: 0.9 % Sodium Chloride 2,000 ML PRIME SCH (11:30)
[2021-12-16] MEDS: Norepinephrine 4 MG/254 ML IV.SOLN IVC SCH ×2 (12:14→21:18)
[2021-12-16] MEDS: MOM Conc 10 ML UD.LIQ GTUBE SCH (13:35)
[2021-12-16 18:39] LABS: Hepatitis B Surface Antibody 88.39 mIU/mL
[2021-12-16 18:50] LABS: Hepatitis B Surface Antigen Nonreactive (Nonreactive)
[2021-12-16] MEDS: Meropenem 1,000 MG in 0.9 % Sodium Chloride Mini Bag 100 ML IVPB SCH (22:24)
[2021-12-17] MEDS: PrismaSATE BGK 4/2.5 5,000 ML CRRT SCH ×2 (00:02→23:59)
[2021-12-17] MEDS: Insulin LISPRO 300 UNITS/3 ML VIAL SUBQ SCH ×4 (00:30→17:05)
[2021-12-17] MEDS: Dexmedetomidine HCl 400 MCG/100 ML MLS IVC SCH ×11 (02:30→23:51)
[2021-12-17] MEDS: Artificial Tears SOLN 15 ML BOTTLE BOTH EYES SCH ×6 (03:44→23:20)
[2021-12-17] MEDS: Ipratropium/Albuterol Neb 3 ML IH SCH ×4 (04:02→20:11)
[2021-12-17 05:18] LABS: ABG Base Excess 1 mEq/L (-2 to 3); ABG HCO3 26 mEq/L (21-27); ABG Oxygen Saturation 100 % (95-98); ABG PCO2 43 mmHg (35-45); ABG PH 7.39 pH Units (7.32-7.45); ABG PO2 236 mmHg (85-104); ABG TCO2 27 mEq/L (20-26); Blood Gas Modality CPAP/PS; Blood Gas Pressure Support 15 cm H2O
[2021-12-17 05:18] LABS: VBG Ionized Calcium 0.96 mmol/L (1.15-1.35)
[2021-12-17 05:21] LABS: Hematocrit 23.4 % (37.5-50.1); Hemoglobin 7.9 g/dL (12.9-16.9); Mean Corpuscular HGB Conc 33.8 g/dL (31.6-35.5); Mean Corpuscular Hemoglobin 29.3 pg (28.0-33.3); Mean Corpuscular Volume 86.7 fL (83.0-100.0); Mean Platelet Volume 11.2 fL (9.4-12.4); Platelet Count 246 K/mcL (140-400); Red Cell Distribution Width 16.1 % (11.5-14.5)
[2021-12-17] MEDS: Metoclopramide 10 MG/2 ML VIAL IVP SCH ×4 (05:59→23:15)
[2021-12-17] MEDS: *HR* Heparin 5,000 UNIT/ML VIAL SQ SCH ×3 (05:59→23:15)
[2021-12-17 06:32] LABS: Calcium 8.1 mg/dL (8.6-10.3); Magnesium 2.3 mg/dL (1.6-2.6); Potassium 4.1 mEq/L (3.5-5.1)
[2021-12-17] MEDS: FentaNYL (PF) 1,000 MCG/100 ML IV.SOLN IVC SCH ×2 (08:05→21:22)
[2021-12-17] MEDS: Chlorhexidine Rinse 15 ML MOUTHWASH MM SCH ×2 (09:17→19:19)
[2021-12-17] MEDS: Pantoprazole 40 MG VIAL IVP SCH (09:17)
[2021-12-17] MEDS: Bisacodyl 10 MG RECTAL SUPPOSITORY RC SCH (09:31)
[2021-12-17] MEDS: Aspirin 81 MG TAB.CHEW PO SCH (09:31)
[2021-12-17] MEDS: MOM Conc 10 ML UD.LIQ GTUBE SCH (09:31)
[2021-12-17] MEDS: Docusate Oral Soln 100 MG/10 ML UDC PO SCH ×2 (09:31→19:22)
[2021-12-17 17:44] LABS: VBG Ionized Calcium 1.12 mmol/L (1.15-1.35)
[2021-12-17] MEDS ORDERED: Iopamidol - 370 500 ML MLS IVP ONE (17:55)
[2021-12-17] MEDS: Meropenem 1,000 MG in 0.9 % Sodium Chloride Mini Bag 100 ML IVPB SCH (21:30)
[2021-12-17] MEDS: SODIUM CHLORIDE 0.9% IVC SCH (23:58)
[2021-12-17] MEDS: NICARDIPINE IVC SCH (23:58)
[2021-12-17] MEDS: Norepinephrine 4 MG/254 ML IV.SOLN IVC SCH (23:58)
[2021-12-18] MEDS: SODIUM CHLORIDE 0.9% IVC SCH ×2 (00:04→15:12)
[2021-12-18] MEDS: NICARDIPINE IVC SCH ×2 (00:04→15:12)
[2021-12-18] MEDS: Dexmedetomidine HCl 400 MCG/100 ML MLS IVC SCH ×8 (01:41→18:20)
[2021-12-18] MEDS: Ipratropium/Albuterol Neb 3 ML IH SCH ×3 (03:23→15:31)
[2021-12-18] MEDS: Vancomycin Oral Soln 125 MG/2.5 ML UDC PO SCH ×4 (03:43→16:59)
[2021-12-18] MEDS: Artificial Tears SOLN 15 ML BOTTLE BOTH EYES SCH ×4 (03:43→16:59)
[2021-12-18 04:21] LABS: Hematocrit 23.6 % (37.5-50.1); Hemoglobin 7.7 g/dL (12.9-16.9); Mean Corpuscular HGB Conc 32.6 g/dL (31.6-35.5); Mean Corpuscular Hemoglobin 28.6 pg (28.0-33.3); Mean Corpuscular Volume 87.7 fL (83.0-100.0); Mean Platelet Volume 11.1 fL (9.4-12.4); Platelet Count 240 K/mcL (140-400); Red Blood Count 2.69 M/mcL (4.19-5.50); Red Cell Distribution Width 16.1 % (11.5-14.5)
[2021-12-18 04:22] LABS: White Blood Count 11.7 K/mcL (4.3-11.1)
[2021-12-18 04:41] LABS: Magnesium 2.8 mg/dL (1.6-2.6); Potassium 5.3 mEq/L (3.5-5.1)
[2021-12-18] MEDS: Insulin LISPRO 300 UNITS/3 ML VIAL SUBQ SCH ×4 (05:39→18:15)
[2021-12-18] MEDS: Metoclopramide 10 MG/2 ML VIAL IVP SCH ×2 (05:41→11:27)
[2021-12-18] MEDS: *HR* Heparin 5,000 UNIT/ML VIAL SQ SCH ×2 (05:42→13:10)
[2021-12-18] MEDS: FentaNYL (PF) 1,000 MCG/100 ML IV.SOLN IVC SCH ×2 (07:40→18:20)
[2021-12-18] MEDS ORDERED: 0.9 % Sodium Chloride 250 ML IVC PRN (08:48)
[2021-12-18] MEDS ORDERED: *HR* Heparin 10,000 UNIT/10 ML VIAL IV PRN (08:48)
[2021-12-18] MEDS: Norepinephrine 4 MG/254 ML IV.SOLN IVC SCH ×2 (09:13→15:58)
[2021-12-18] MEDS: Pantoprazole 40 MG VIAL IVP SCH (09:13)
[2021-12-18] MEDS: Aspirin 81 MG TAB.CHEW PO SCH (09:13)
[2021-12-18] MEDS: Chlorhexidine Rinse 15 ML MOUTHWASH MM SCH (09:13)
[2021-12-18] MEDS: Docusate Oral Soln 100 MG/10 ML UDC PO SCH (09:14)
[2021-12-18] MEDS: Bisacodyl 10 MG RECTAL SUPPOSITORY RC SCH (09:14)
[2021-12-18] MEDS: MOM Conc 10 ML UD.LIQ GTUBE SCH (09:16)
[2021-12-18] MEDS ORDERED: Metoclopramide 10 MG/2 ML VIAL IVP SCH (14:00)
== END 2021-12-18 19:22 | disposition short-term general hospital (02) | DRG 3 ==
LOC: EMEROOARM 07:28 → ICNU 09:11
PROVIDERS: ADMIT Thoracic Surgery (Cardiothoracic Vascular Surgery); ATTEND Thoracic Surgery (Cardiothoracic Vascular Surgery)